=== PATIENT | female | born 1970 | race African-American/Black ===

== ENCOUNTER 2020-10-12 05:54 | Day surgery (SDC) | payer BC ==
[2020-10-12] VITALS (8 sets, daily range): BP systolic 122–163; BP diastolic 80–104
[~2020-10-12] VITALS: Ht 167.6 cm; Wt 88.9 kg
[~2020-10-12 05:54] MED LIST: AMLODIPINE BES2.5 MG ORAL; ATORVASTATIN CA40 MG ORAL; BENICAR HCT 401 EACH ORAL; LATANOPROST 0.7.5 ML OP; METFORMIN HCL500 M1 ORAL
--- NOTE | 2020-10-12 07:27 | Anethesia Preoperative Eval ---
Anesthesia Pre-op PMH/ROS General Date of Evaluation: Oct 12, 2020 Time of Evaluation: 07:24 Anesthesiologist: Toño ASA Score: ASA 2 Mallampati Score Class I : Soft palate, uvula, fauces, pillars visible Class II: Soft palate, uvula, fauces visible Class III: Soft palate, base of uvula visible Class IV: Only hard plate visible Mallampati Classification: Class II Surgeon: Loren Diagnosis: Colon CA screening Surgical Procedure: Colonoscopy Anesthesia History: none Family History: no anesthesia problems Allergies: Coded Allergies: NAPROXEN (Verified Allergy, Severe, Hives, 10/12/20) PENICILLINS (Verified Adverse Reaction, Severe, Anaphylaxis, 10/09/20) Medications: see eMAR Patient NPO?: Yes Past Medical History Cardiovascular: Reports: HTN; Denies: CAD, ND, valve dz, arrhythmia, other Pulmonary: Denies: asthma, COPD, KEANU, other Gastrointestinal/Genitourinary: Reports: GERD - mild; Denies: CRI, ESRD, other Neurologic/Psychiatric: Denies: dementia, CVA, depression/anxiety, TIA, other Endocrine: Reports: DM - on pills; Denies: hypothyroidism, steroids, other HEENT: Reports: glaucoma; Denies: cataract (L), cataract (R), [place] (L), [place] (R), other Hematology/Immune: Denies: anemia, DVT, bleeding disorder, other Musculoskeletal/Integumentary: Denies: OA, RA, DJD, DDD, edema, other Other: obesity PMH Narrative: as above PSxH Narrative: See H&P Anesthesia Pre-op Phys. Exam Physician Exam Last Vital Signs Date Time Temp Pulse Resp B/P (MAP) Pulse Ox O2 Delivery O2 Flow Rate FiO2 10/12/20 06:30 Room Air 10/12/20 06:29 98.8 87 18 124/80 98 Constitutional: NAD Neurologic: CN 2-12 intact Cardiovascular: RRR, no M/R/G Respiratory: CTA Gastrointestinal: S/NT/ND Airway Exam Mallampati Score: Class II MO: full ROM: full Teeth: intact Dentures: no upper, no lower Anesthesia Pre-op A/P Labs see chart Urine Test Test 10/12/20 06:05 Urine HCG, Qualitative Negative (NEGATIVE) Risk Assessment & Plan Assessment: ASA 2 Plan: MAC Status Change Before Surgery: No Pre-Antibiotics Drug: none Harley Lundberg MD Oct 12, 2020 07:27
[2020-10-12] MEDS ORDERED: Midazolam 2mg/2ml Inj ONE (07:41)
--- NOTE | 2020-10-12 07:55 | Short Stay Surgery H&P ---
History of Present Illness History of Present Illness Chief Complaint screening HPI Diamond Cardoza is a 50 year old female who was admitted on for Screening Patient History Allergies: Coded Allergies: NAPROXEN (Verified Allergy, Severe, Hives, 10/12/20) PENICILLINS (Verified Adverse Reaction, Severe, Anaphylaxis, 10/09/20) Medication History Scheduled Amlodipine Besylate* (Amlodipine Besylate*), 2.5 MG ORAL DAILY, (Reported) Atorvastatin Calcium* (Atorvastatin Calcium*), 40 MG ORAL BEDTIME, (Reported) Latanoprost/Pf (Latanoprost 0.005% Eye Drop), 7.5 ML OP BEDTIME, (Reported) Metformin Hcl* (Metformin Hcl*), 1,000 MG ORAL DAILY, (Reported) Olmesartan/Hydrochlorothiazide 40-12.5MG (Benicar Hct 40-12.5 Mg Tablet), 1 TAB ORAL DAILY, (Reported) Physical Exam Vital Signs Last Vital Signs Date Time Temp Pulse Resp B/P (MAP) Pulse Ox O2 Delivery O2 Flow Rate FiO2 10/12/20 06:30 Room Air 10/12/20 06:29 98.8 87 18 124/80 98 Labs Laboratory Tests Test 10/12/20 06:05 Urine HCG, Qualitative Negative (NEGATIVE) Plan Attestation Are the patient's medical conditions optimized for surgery? Keyon Retana MD Oct 12, 2020 07:55
--- NOTE | 2020-10-12 07:56 | Pre-Procedure Note/Attestation ---
Pre-Procedure Note/Attestation Complete Prior to Procedure Planned Procedure: not applicable Procedure Narrative: colonoscopy Indications for Procedure Pre-Operative Diagnosis: screening Attestation I attest that I discussed the nature of the procedure; its benefits; risks and complications; and alternatives (and the risks and benefits of such alternatives), prior to the procedure, with the patient (or the patient's legal tax representative). I attest that, if there was a reasonable possibility of needing a blood tra nsfusion, the patient (or the patient's legal tax representative) was given the [facility] standardized written summary, pursuant to the Suresh Sulligent Blood Safety Act ([place] Health and Safety Code # 1645, as amended). I attest that I re-evaluated the patient just prior to the surgery and that there has been no change in the patient's H&P, except as documented below: Keyon Retana MD Oct 12, 2020 07:56
[2020-10-12] MEDS ORDERED: LR 1000ml 1,000 ML IVLG SCH (08:00)
[2020-10-12] MEDS ORDERED: fentaNYL 100 mcg/2 mL IV PRN (08:00)
--- NOTE | 2020-10-12 08:29 | Endoscopy Procedure Note ---
Endoscopy Procedure Note General Indication for Procedure: screen Procedures Performed: colonoscopy Operative Findings/Diagnosis: mild left sided diverticulosis Specimen: none Pt Tolerated Procedure Well: Yes Estimated Blood Loss: none Anesthesia Anesthesiologist: Piyush Anesthesia: MAC Medications Medication Given: see anesthesia record Inserted Devices Implant(s) used?: No Quality Quality of Bowel Preparation: Excellent Was there any complications?: No GI Core Measures 50 yrs or older w/o bx or poly: Yes 10yrs. F/U recommended: Yes If not recommended, why?: 18 years or older w/prev. colo: No <3yrs. since last colonoscopy: No Med reason:<3 yrs.: System Reason:<3 yrs.: Last colonoscopy >= to 3yrs: Yes Keyon Retana MD Oct 12, 2020 08:29
--- NOTE | 2020-10-12 08:31 | Brief Operative Note ---
Immediate Post Operative Note Operative Note Chief Complaint: screen Pre-op Diagnosis: screening Procedure: colon Post-op Diagnosis: diverticulosis Surgeon: oc Anesthesiologist: Veena Anesthesia: MAC Specimen: none Complications: none Condition: stable Fluids: per anesthesia Estimated Blood Loss: none Implant(s) used?: No Keyon Retana MD Oct 12, 2020 08:31
--- NOTE | 2020-10-12 08:35 | Immediate Post-Op Evaluation ---
Immediate Post-Op Evalulation Immediate Post-Op Evalulation Procedure: Colonoscopy Date of Evaluation: Oct 12, 2020 Time of Evaluation: 08:34 IV Fluids: 600 Blood Products: none Estimated Blood Loss: none Urinary Output: none Blood Pressure Systolic: 148 Blood Pressure Diastolic: 86 Pulse Rate: 74 Respiratory Rate: 18 O2 Sat by Pulse Oximetry: 99 Temperature (Fahrenheit): 97.6 Pain Score (1-10): 1 Nausea: No Vomiting: No Complications none Patient Status: reacts, patent, none Hydration Status: adequate Harley Lundberg MD Oct 12, 2020 08:34
--- NOTE | 2020-10-12 09:10 | 48 Hour Post Anesthesia Eval ---
Post Anesthesia Evaluation Procedure: Colonoscopy Date of Evaluation: Oct 12, 2020 Time of Evaluation: 09:08 Blood Pressure Systolic: 158 0: 86 Pulse Rate: 74 Respiratory Rate: 20 Temperature (Fahrenheit): 97.6 O2 Sat by Pulse Oximetry: 99 Airway: patent Nausea: No Vomiting: No Pain Intensity: 1 Hydration Status: adequate Cardiopulmonary Status: stable Mental Status/LOC: patient returned to baseline Follow-up Care/Observations: n/a Post-Anesthesia Complications: none Follow-up care needed: ready to discharge Harley Lundberg MD Oct 12, 2020 09:10
--- NOTE | 2020-10-13 23:44 | Procedure Note ---
DATE OF PROCEDURE: 10/12/2020 PROCEDURE: Screening colonoscopy. SURGEON: Keyon Retana MD. ANESTHESIA: Please see the separate anesthesiologist notes for details. PRE-ENDOSCOPIC DIAGNOSIS: Screening. POST-ENDOSCOPIC DIAGNOSIS: Mild left-sided colonic diverticulosis. DESCRIPTION OF PROCEDURE: The procedure its risks, indications, alternatives, and possible complications including but not limited to bleeding, infection, perforation, , and anesthesia complications were explained to the patient and informed consent was obtained. The patient was then sedated in the left lateral decubitus position and rectal exam was done. The diagnostic colonoscope was then introduced in the rectum and advanced into the colon and all the way to the cecum and then 10 cm into the small bowel. The colonoscope was then gradually withdrawn and the mucosa examined carefully. Examination of the colonic mucosa revealed scattered left-sided diverticulosis. There were otherwise no polyps or other abnormalities identified. The colonoscope was removed. The patient was sent to recovery room in good condition. COMPLICATIONS: None. RECOMMENDATIONS: 1. High-fiber diet. 2. Outpatient followup. 3. Annual stool occult blood testing. 4. Repeat colonoscopy in 10 years. Keyon Retana M.D. DR: Yasmine JOB#: [id number] CC: Keyon Retana M.D.; Fax#: [phone]
== END 2020-10-12 09:50 | disposition home or self-care (01) ==
LOC: GAS 05:54
DX: Z12.11 Encounter for screening for malignant neoplasm of colon (principal); K57.90 Diverticulosis of intestine, part unspecified, without perforation or abscess without bleeding; I10 Essential (primary) hypertension; E11.9 Type 2 diabetes mellitus without complications; Z88.0 Allergy status to penicillin; K21.9 Gastro-esophageal reflux disease without esophagitis; Z79.84 Long term (current) use of oral hypoglycemic drugs; E66.9 Obesity, unspecified; Z68.31 Body mass index [BMI] 31.0-31.9, adult; Z79.899 Other long term (current) drug therapy
CPT/HCPCS: 45378; 81025; 94003; J2250; 94150